=== PATIENT | female | born 1980 | race Caucasian/White ===

== ENCOUNTER → 2017-03-03 | Outpatient (CLI) | payer BC | LOC: RAD 07:54 | DX: R14.0 Abdominal distension (gaseous) (principal); R53.83 Other fatigue ==

== ENCOUNTER → 2017-09-25 | Outpatient (CLI) | payer BC | LOC: LAB 12:07 | DX: R68.89 Other general symptoms and signs (principal) ==

== ENCOUNTER 2019-10-31 11:34 | Emergency (ER) | payer BC ==
[~2019-10-31] VITALS: Ht 162.6 cm; Wt 73.6 kg
[2019-10-31] MEDS ORDERED: PROPRANOLOL HCL40 M2 PO (11:41)
[2019-10-31] MEDS ORDERED: EMGALITY S120 MG/1 M SQ (11:42)
[2019-10-31] MEDS ORDERED: PERCOCET 2.5-31 EACH PO (11:42)
[2019-10-31] MEDS ORDERED: TIZANIDINE2 MG PO (11:42)
[2019-10-31 12:22] LABS: EOS # 0.6 (0.04-0.40); EOS % 3.6 % (1.0-5.0); HEMATOCRIT 43.1 % (37.0-47.0); HEMOGLOBIN 14.1 g/dL (12.5-16.0); LYMPH# 2.2 (1.50-4.00); MEAN CELL VOLUME 86 fl (78-100); MEAN CORPUSCULAR HEMOGLOBIN 28 pg (27-31); MEAN CORPUSCULAR HGB CONC 33 g/dL (33-37); MEAN PLATELET VOLUME 10.7 fl (7.4-10.4); MONO # 1.3 (0.20-0.80); NEU # 13.7 (1.40-6.50); PLATELET COUNT 214 K/mm3 (130-400); RED BLOOD COUNT 5.04 M/mm3 (4.10-5.30); RED CELL DISTRIBUTION WIDTH 13.1 % (11.5-14.5); WHITE BLOOD COUNT 17.8 K/mm3 (4.8-10.8)
[2019-10-31 12:27] LABS: URINE APPEARANCE CLEAR; URINE COLOR YELLOW; URINE PROTEIN(semi-quant) TRACE mg/dL (NEGATIVE)
[2019-10-31 12:28] LABS: URINE BILIRUBIN 2+ (NEGATIVE); URINE BLOOD NEGATIVE (NEGATIVE); URINE GLUCOSE NEGATIVE (NEGATIVE); URINE KETONE NEGATIVE (NEGATIVE); URINE LEUKOCYTE ESTERASE NEGATIVE (NEGATIVE); URINE MUCUS PRESENT (NOT PRESENT); URINE NITRATE NEGATIVE (NEGATIVE); URINE UROBILINOGEN NORMAL (NORMAL)
[2019-10-31 12:34] LABS: ALBUMIN 4.7 g/dL (3.5-5.0)
[2019-10-31 12:35] LABS: POTASSIUM 4.3 mmol/L (3.5-5.1)
[2019-10-31 12:36] LABS: CALCIUM 9.1 mg/dL (8.3-10.5)
[2019-10-31 12:37] LABS: TOTAL PROTEIN 7.8 g/dL (6.4-8.3)
[2019-10-31 12:39] LABS: TOTAL BILIRUBIN 0.4 mg/dL (0.2-1.2)
[2019-10-31 15:01] VITALS: BP 132/84
== END 2019-10-31 15:10 | disposition short-term general hospital (02) ==
LOC: ED 11:34
PROVIDERS: Nurse Practitioner Primary Care
DX: K35.80 Unspecified acute appendicitis (principal); Z87.442 Personal history of urinary calculi
CPT/HCPCS: C9113; J2543; Q9967

== ENCOUNTER → 2020-07-06 | Outpatient (CLI) | payer BC ==
[~2020-07-06] MED LIST: EMGALITY S120 MG/1 M SQ; PERCOCET 2.5-31 EACH PO; PROPRANOLOL HCL40 M2 PO; TIZANIDINE2 MG PO
== END ==
LOC: RAD 16:19
DX: S87.02XA Crushing injury of left knee, initial encounter (principal); W19.XXXA Unspecified fall, initial encounter

== ENCOUNTER 2020-11-03 13:41 | Emergency (ER) | payer BC ==
[~2020-11-03 13:41] MED LIST changes: -TIZANIDINE2 MG PO; +ZANAFLEX CAPSULE2 MG PO
[2020-11-03 14:27] LABS: HEMOGLOBIN 14.1 g/dL (12.5-16.0); WHITE BLOOD COUNT 10.1 K/mm3 (4.8-10.8)
[2020-11-03 14:28] LABS: HEMATOCRIT 41.7 % (37.0-47.0); MEAN CELL VOLUME 83 fl (78-100); MEAN CORPUSCULAR HEMOGLOBIN 28 pg (27-31); MEAN CORPUSCULAR HGB CONC 34 g/dL (33-37); PLATELET COUNT 299 K/mm3 (130-400); RED CELL DISTRIBUTION WIDTH 12.3 % (11.5-14.5)
[2020-11-03 14:29] LABS: EOS % 0.4 % (1.0-5.0); LYMPH# 1.8 (1.50-4.00); MONO # 0.5 (0.20-0.80); NEU # 7.7 (1.40-6.50)
[2020-11-03 14:48] LABS: ALBUMIN 4.4 g/dL (3.5-5.0); POTASSIUM 4.2 mmol/L (3.5-5.1)
[2020-11-03 14:49] LABS: TOTAL BILIRUBIN 0.5 mg/dL (0.2-1.2)
[2020-11-03 14:50] LABS: CALCIUM 8.8 mg/dL (8.3-10.5)
[2020-11-03 14:51] LABS: TOTAL PROTEIN 7.5 g/dL (6.4-8.3)
[2020-11-03] MEDS ORDERED: PROPRANOLOL ER80 MG PO (15:06)
[2020-11-03] MEDS ORDERED: EMGALITY120 MG/1 M SQ (15:08)
[2020-11-03] MEDS ORDERED: NURTEC ODT75 MG PO (15:08)
[2020-11-03] MEDS ORDERED: PERMETHRIN60 GM TP (15:12)
[2020-11-03 15:23] LABS: PH-URINE 6.5 (5.0 - 8.0); URINE APPEARANCE CLOUDY; URINE BILIRUBIN 1+ (NEGATIVE); URINE COLOR YELLOW; URINE GLUCOSE NEGATIVE (NEGATIVE); URINE KETONE 1+ (NEGATIVE); URINE PROTEIN(semi-quant) TRACE mg/dL (NEGATIVE)
[2020-11-03 15:24] LABS: URINE BLOOD 250 ery/uL (NEGATIVE); URINE LEUKOCYTE ESTERASE NEGATIVE (NEGATIVE); URINE MUCUS PRESENT (NOT PRESENT); URINE NITRATE NEGATIVE (NEGATIVE); URINE UROBILINOGEN NORMAL (NORMAL)
[2020-11-03] MEDS ORDERED: ZOFRAN ODT4 MG PO (16:53)
[2020-11-03] MEDS ORDERED: PERCOCET 325 MG1 TA2 PO (16:53)
[2020-11-03] MEDS ORDERED: CEFDINIR300 MG PO (17:40)
[2020-11-03 18:00] VITALS: BP 122/72
== END 2020-11-03 18:00 | disposition home or self-care (01) ==
LOC: ED 13:41
PROVIDERS: Family Medicine
DX: N20.1 Calculus of ureter (principal); G43.909 Migraine, unspecified, not intractable, without status migrainosus; Z87.442 Personal history of urinary calculi
CPT/HCPCS: J1885; J2270; J2405; J7030

== ENCOUNTER → 2022-12-24 | Outpatient (CLI) | payer OTHER ==
[~2022-12-24] MED LIST changes: +CEFDINIR300 MG PO; +EMGALITY120 MG/1 M SQ; +NURTEC ODT75 MG PO; +PERCOCET 325 MG1 TA2 PO; +PERMETHRIN60 GM TP; +PROPRANOLOL ER80 MG PO; +ZOFRAN ODT4 MG PO
== END ==
LOC: MAMMO 15:56
DX: Z12.31 Encounter for screening mammogram for malignant neoplasm of breast (principal)

== ENCOUNTER → 2023-10-19 | Outpatient (CLI) | payer OTHER ==
[~2023-10-19] MED LIST changes: +ESTRACE 1MG1 MG/TAB PO; +LOSARTAN POTASS50 M1 PO
== END ==
LOC: RAD 08:15
DX: M54.50 Low back pain, unspecified (principal)